=== PATIENT | female | born 1990 | race Caucasian/White ===

== ENCOUNTER 2025-03-20 10:45 | Emergency (ER) | payer BC ==
[2025-03-20 11:12] LABS: APPEARANCE,URINE CLOUDY (CLEAR); GLUCOSE,URINE 250 (NEGATIVE); OCCULT BLOOD,URINE NEGATIVE (NEGATIVE)
[2025-03-20] MEDS: cefTRIAXone 2 GM, Lidocaine 1% 2.1 ML IM ONE (11:26)
[2025-03-20] MEDS: Ketorolac 30 MG/ML SDV IM ONE (11:26)
[2025-03-20 11:30] LABS: EPITHELIAL CELLS,URINE MODERATE /HPF (NOT SEEN)
== END 2025-03-20 11:35 | disposition home or self-care (01) ==
LOC: DL.ED 10:45
DX: N12 Tubulo-interstitial nephritis, not specified as acute or chronic (principal); Z86.16 Personal history of COVID-19
CPT/HCPCS: 81001; 81025; 87086; 96372; 99284; J0696; J1885; J2003

== ENCOUNTER 2025-03-21 13:16 | Observation (INO) | payer BC ==
[2025-03-21 13:42] LABS: BASOPHILS PERCENT AUTO 0.2 % (0.0-1.0); EOSINOPHILS PERCENT AUTO 1.1 % (1.0-3.0); LYMPHOCYTES PERCENT AUTO 37.0 % (20.5-50.1); MONOCYTES PERCENT AUTO 5.8 % (2-8); NEUTROPHILS PERCENT AUTO 55.9 % (42.2-75.2); PLATELET COUNT,PLT 393 10^3/uL (150-450); RED BLOOD CELL COUNT 4.58 10^6/uL (4.2-5.4); WHITE BLOOD CELL COUNT,WBC 8.8 10^3/uL (5.0-10.0)
[2025-03-21] MEDS: Ketorolac 30 MG/ML SDV IVPUSH ONE (13:51)
[2025-03-21 14:02] LABS: A/G RATIO 0.7; ALANINE AMINOTRANSFERASE,ALT 42.0 U/L (14-59); ASPARTATE AMNIOTRANSFERASE,AST 25.0 U/L (15-37); BILIRUBIN TOTAL 0.2 mg/dL (0.2-1.0); BLOOD UREA NITROGEN,BUN 12.0 mg/dL (7-18); CARBON DIOXIDE,CO2 28.0 mmol/L (21-32); CHLORIDE,CL 107.0 mmol/L (98-107); CREATININE 0.95 mg/dL (0.55-1.02); EST CRCL DRUG DOSING (CG) 75.08 mL/min; ESTIMATED GFR 81.0 mL/min (>=60); GLUCOSE RANDOM 179.0 mg/dL (70-99); POTASSIUM,K 4.2 mmol/L (3.5-5.1); PROTEIN TOTAL,TP 8.4 g/dL (6.4-8.2); SODIUM,NA 146.0 mmol/L (136-145)
[2025-03-21 14:10] LABS: LACTIC ACID 2.1 mmol/L (0.4-2.0)
[2025-03-21] MEDS: Iopamidol 612 MG/ML 100 ML Bottle IVPUSH ONE (14:15)
[2025-03-21] MEDS ORDERED: Sodium Chloride 0.9% 10 ML Syringe FLUSH PRN (15:35)
[2025-03-21] MEDS ORDERED: Ketorolac 30 MG/ML SDV IVPUSH PRN (15:35)
[2025-03-21] MEDS: Ondansetron 4 MG/2 ML SDV IVPUSH PRN (19:27)
[2025-03-21 19:32] LABS: CHOLESTEROL HDL 45 mg/dL (40-59); CHOLESTEROL LDL CALCULATED 122 mg/dL (0-100); CHOLESTEROL TOTAL 201 mg/dL (0-199)
[2025-03-21] MEDS: Sodium Chloride 0.9% 10 ML Syringe FLUSH SCH (23:49)
[2025-03-22 06:24] LABS: BASOPHILS PERCENT AUTO 0.1 % (0.0-1.0); EOSINOPHILS PERCENT AUTO 2.4 % (1.0-3.0); LYMPHOCYTES PERCENT AUTO 35.1 % (20.5-50.1); MONOCYTES PERCENT AUTO 6.6 % (2-8); NEUTROPHILS PERCENT AUTO 55.8 % (42.2-75.2); PLATELET COUNT,PLT 316 10^3/uL (150-450); RED BLOOD CELL COUNT 3.89 10^6/uL (4.2-5.4); WHITE BLOOD CELL COUNT,WBC 8.5 10^3/uL (5.0-10.0)
[2025-03-22 06:46] LABS: ALANINE AMINOTRANSFERASE,ALT 30.0 U/L (14-59); ASPARTATE AMNIOTRANSFERASE,AST 21.0 U/L (15-37); BILIRUBIN TOTAL 0.2 mg/dL (0.2-1.0); BLOOD UREA NITROGEN,BUN 9.0 mg/dL (7-18); CARBON DIOXIDE,CO2 22.0 mmol/L (21-32); CHLORIDE,CL 111.0 mmol/L (98-107); CREATININE 0.66 mg/dL (0.55-1.02); EST CRCL DRUG DOSING (CG) 86.27 mL/min; GLUCOSE RANDOM 119.0 mg/dL (70-99); POTASSIUM,K 3.7 mmol/L (3.5-5.1); PROTEIN TOTAL,TP 6.5 g/dL (6.4-8.2); SODIUM,NA 144.0 mmol/L (136-145)
[2025-03-22 07:02] LABS: A/G RATIO 0.71; ESTIMATED GFR 118.0 mL/min (>=60)
[2025-03-22] MEDS: Take Home: Ondansetron 4 MG Tab.DIS, 5 Tab Pack PO ONE (12:05)
== END 2025-03-22 10:55 | disposition left against medical advice (07) ==
LOC: DL.ED 13:16 → DL.MS 15:16
PROVIDERS: ADMIT Student in an Organized Health Care Education/Training Program; ATTEND Student in an Organized Health Care Education/Training Program
DX: N12 Tubulo-interstitial nephritis, not specified as acute or chronic (principal); K52.9 Noninfective gastroenteritis and colitis, unspecified; R10.A2 Flank pain, left side; E78.5 Hyperlipidemia, unspecified
CPT/HCPCS: 36415; 74177; 80053; 80061; 81025; 82009; 83036; 83605; 83735; 85025; 86140; 96361; 96374; 96375; 96376; 99222; 99238; 99285; G0378; J0696; J1885; J2405; J2765; J7030; Q9967; S5010; 99284